=== PATIENT | female | born 2000 | race Caucasian/White ===

== ENCOUNTER 2024-01-07 10:09 | Inpatient (IN) ==
[2024-01-07 11:59] LABS: Urine Appearance Clear; Urine Bilirubin Negative (Negative); Urine Blood Negative (Negative); Urine Color Colorless; Urine Glucose Negative (Negative); Urine Ketones Negative (Negative); Urine Nitrite Negative (Negative); Urine Protein Negative (Negative); Urine Specific Gravity 1.002 (1.002-1.030); Urine Urobilinogen Negative (Negative); Urine pH 6.5 (5.0-8.0)
[2024-01-07 12:07] LABS: ABS Eosinophils 0.1 10^3/uL (0.0-0.5); ABS Lymphocytes 2.6 10^3/uL (1.0-4.8); ABS Monocytes 0.7 10^3/uL (0.0-0.9); ABS Neutrophils 4.9 10^3/uL (1.5-7.6); Eosinophil % 0.8 %; Hematocrit 39.6 % (35-45); Hemoglobin 13.5 g/dL (11.5-14.3); Lymphocyte % 31.3 %; Mean Corpuscular Hemoglobin 32.2 pg (27-33); Mean Corpuscular Hgb Conc 34.2 g/dL (31-36); Mean Corpuscular Volume 94.2 fL (80-97); Mean Platelet Volume 7.7 fL (7.5-11.2); Platelet Count 287 10^3/uL (150-450); Red Cell Distribution Width 12.2 % (12-17); White Blood Count 8.4 10^3/uL (3.8-11.8)
[2024-01-07 12:16] LABS: Urine Benzodiazepine Screen None Detected (None Detect); Urine Cannabinoids Screen None Detected (None Detect); Urine Opiates Screen None Detected (None Detect)
[2024-01-07 12:43] LABS: HCG Pregnancy < 0.60 mIU/mL
[2024-01-07 12:45] LABS: ALT 15 U/L (7-52); AST 17 U/L (13-39); Acetaminophen < 15 mcg/mL; Albumin 4.9 g/dL (3.2-5.2); Albumin/Globulin Ratio 2.1 (1-3); Alcohol, S < 13 mg/dL (<13); Alkaline Phosphatase 44 U/L (35-149); Anion Gap 13 mmol/L (2-16); Blood Urea Nitrogen 12 mg/dL (6-24); CO2 Carbon Dioxide 23 mmol/L (22-32); Calcium 9.7 mg/dL (8.6-10.3); Chloride 102 mmol/L (101-111); Creatinine, Serum 0.77 mg/dL (0.51-0.95); Globulin 2.3 g/dL (2-4); Glucose 103 mg/dL (70-100); Potassium 3.3 mmol/L (3.5-5.0); Salicylate < 2.50 mg/dL (<30); Sodium 138 mmol/L (135-145); Total Bilirubin 0.5 mg/dL (0.2-1.0); Total Protein 7.2 g/dL (6.4-8.9); eGFR CKD-EPI 109.7 (>60)
[2024-01-07 12:51] LABS: TSH Ultra Thyroid Stim Horm 7.53 mcIU/mL (0.34-5.60)
[2024-01-07] MEDS: Ondansetron ODT 4 mg TAB 4 MG TAB SL ONE (13:41)
[2024-01-07] MEDS: Ziprasidone IM 20 mg VIAL 1 ml VIAL IM ONE (20:48)
[2024-01-07] MEDS: LORazepam 2 MG/ML 1 mL Syringe IM ONE (22:08)
[2024-01-07] MEDS: Haloperidol 5 mg/ml SDV IV/IM 5 MG/ML AMP IM ONE (22:08)
[2024-01-07] MEDS ORDERED: Lorazepam PYXIS KEY PRN (22:28)
[2024-01-08] MEDS: Ziprasidone IM 20 mg VIAL 1 ml VIAL ONE (00:04)
[2024-01-08] MEDS: LORazepam 2 MG/ML 1 mL Syringe ONE (00:06)
[2024-01-08] MEDS: Haloperidol 5 mg/ml SDV IV/IM 5 MG/ML AMP ONE (00:06)
[2024-01-08] MEDS: Vitamin THERAPEUTIC TAB PO SCH (10:24)
[2024-01-08] MEDS: Al Hydrox/Mg Hydrox/Simet LIQ 30 ML UDC PO PRN (13:33)
[2024-01-08 22:03] LABS: HIV 4th Generation Nonreactive (Nonreactive)
[2024-01-08 22:11] LABS: Hepatitis B Surface Ab Not Immune (Immune)
[2024-01-08 22:12] LABS: Hepatitis C Antibody Negative (Negative)
[2024-01-08] MEDS: LO LOESTRIN FE PO SCH (22:55)
[2024-01-08] MEDS: cefTRIAXone VIAL 500 MG VIAL IM ONE (23:13)
[2024-01-08] MEDS: Lidocaine 1% MPF 5 ML VIAL INJ ONE (23:13)
[2024-01-09 11:48] LABS: Hepatitis B Surface Antigen Nonreactive (Nonreactive)
[2024-01-09] MEDS ORDERED: LEVOCETIRIZINE 5 MG PO PRN (18:54)
[2024-01-09] MEDS: LEVOCETIRIZINE 5 MG PO SCH (21:05)
[2024-01-10 14:32] LABS: Rapid Strep Molecular Negative (Negative)
[2024-01-10 16:54] LABS: Trichomonas vag NAA Positive (Negative)
[2024-01-10 17:04] LABS: Chlamydia trachomatis NAA Negative (Negative); Neisseria gonorrhoeae (GC) NAA Negative (Negative)
[2024-01-11 09:25] VITALS: BP 137/85
[2024-01-11] MEDS: Benzocaine/Menthol LOZ MT PRN (15:18)
== END 2024-01-11 15:40 | disposition home or self-care (01) | DRG 897 ==
LOC: ED 10:09 → BSU 18:20
PROVIDERS: ADMIT Psychiatry & Neurology Psychiatry; ATTEND Student in an Organized Health Care Education/Training Program

== ENCOUNTER 2024-01-18 17:19 | Inpatient (IN) ==
[2024-01-18 19:42] LABS: Urine Benzodiazepine Screen None Detected (None Detect); Urine Cannabinoids Screen None Detected (None Detect); Urine Opiates Screen None Detected (None Detect)
[2024-01-19] MEDS ORDERED: Miconazole TOPICAL CREAM 2% 30 GM TOPICAL SCH (02:00)
[2024-01-19] MEDS: Vitamin THERAPEUTIC TAB PO SCH (08:51)
[2024-01-19] MEDS: Miconazole VAGINAL CREAM 2% 45 GM VAGINAL SCH (21:31)
[2024-01-20] MEDS: Fluticasone NASAL SPRAY 50MCG 16 gm SPRAY BTL BOTH NARES SCH (12:45)
[2024-01-21] MEDS: Droperidol 5 MG/2 ML 2 ML VIAL IM ONE (18:22)
[2024-01-24 08:16] LABS: HDL Cholesterol 67.8 mg/dL; Lithium 0.44 mmol/L (0.6-1.2)
[2024-01-24] MEDS: Saline NASAL SPRAY 0.65% BTL BOTH NARES PRN (22:02)
[2024-01-25] MEDS: Al Hydrox/Mg Hydrox/Simet LIQ 30 ML UDC PO PRN (08:17)
[2024-01-28 10:03] VITALS: BP 122/76
== END 2024-01-28 15:40 | disposition home or self-care (01) | DRG 885 ==
LOC: ED 17:19 → EDHOLD 22:39 → BSU 01-19 01:35
PROVIDERS: ADMIT Psychiatry & Neurology Psychiatry; ATTEND Student in an Organized Health Care Education/Training Program